=== PATIENT | male | born 1965 | race African-American/Black ===

== ENCOUNTER 2017-07-07 23:18 | Emergency (ER) | payer OTHER ==
[~2017-07-07] VITALS: Ht 160 cm; Wt 122.5 kg
[2017-07-07 23:20] VITALS: BP 189/93
[2017-07-07] MEDS ORDERED: PRED20TA PO (23:48)
--- NOTE | 2017-07-07 23:48 | PHYS DOC ---
Past Medical History Past Medical History: High Cholesterol, Hypertension Past Surgical History: Other Additional Past Surgical Histo: RIGHT HAND TENDON REPAIR Alcohol Use: Occasionally Drug Use: Marijuana Adult General Chief Complaint Chief Complaint: UPPER EXTREMITY PAIN HPI HPI Patient is a 52 year old male with a history of HTN presents to the ED complaining of tingling in right fingers x 3 days. States he noticed the tingling after working out his forearms at the gym. States he was doing quick repetitive motion. Describes its a tingling/numbness in right hand. Rates it as 3/10. 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 Notices the tingling in right hand after playing video games. Denies fever, swelling, recent travel, chest pain, shortness of breath, n/v, dizziness, weakness, or headache. Review of Systems Review of Systems Constitutional: Denies fever or chills [] Eyes: Denies change in visual acuity, redness, or eye pain [] HENT: Denies nasal congestion or sore throat [] Respiratory: Denies cough or shortness of breath [] Cardiovascular: No additional information not addressed in HPI [] GI: Denies abdominal pain, nausea, vomiting, bloody stools or diarrhea [] : Denies dysuria or hematuria [] Musculoskeletal: Denies back pain or joint pain [] Integument: Denies rash or skin lesions [] Neurologic: Denies headache, focal weakness or sensory changes [] Endocrine: Denies polyuria or polydipsia [] Allergies Allergies Allergies Coded Allergies Type Severity Reaction Last Updated Verified No Known Drug Allergies 06/11/14 No Physical Exam Physical Exam Constitutional: Well developed, well nourished, no acute distress, non-toxic appearance. [] HENT: Normocephalic, atraumatic, bilateral external ears normal, oropharynx moist, no oral exudates, nose normal. [] Eyes: PERRLA, EOMI, conjunctiva normal, no discharge. [] Neck: Normal range of motion, no tenderness, supple, no stridor. [] Cardiovascular:Heart rate regular rhythm, no murmur [] Lungs & Thorax: Bilateral breath sounds clear to auscultation [] Abdomen: Bowel sounds normal, soft, no tenderness, no masses, no pulsatile masses. [] Skin: Warm, dry, no erythema, no rash. [] Back: No tenderness, no CVA tenderness. [] Extremities: No tenderness, no cyanosis, no clubbing, ROM intact, no edema. REPRODUCIBLE TINGLING WITH LIGHT TAPPING OVER MEDIAN NERVE. [] Neurologic: Alert and oriented X 3, normal motor function, normal sensory function, no focal deficits noted. [] Psychologic: Affect normal, judgement normal, mood normal. [] Current Patient Data Vital Signs Vital Signs Date Time Temp Pulse Resp B/P (MAP) Pulse Ox O2 Delivery O2 Flow Rate FiO2 07/07/17 23:20 98.6 76 16 98 Room Air 98.6 Lab Values Laboratory Tests Test 07/07/17 23:41 Glucose (Fingerstick) 95 mg/dL (70-99) EKG EKG [] Radiology/Procedures Radiology/Procedures [] Course & Med Decision Making Course & Med Decision Making Pertinent Labs and Imaging studies reviewed. (See chart for details) [] Reproducible paresthesias with tapping over the median nerve. Patient completes many tasks with repetitive motion of the forearm and wrist. No swelling, bony tenderness or overlying skin changes. Will treat with a short course of steroids outpatient. Discussed follow-up with orthopedics early next week. Discussed reasons to return to the ED. Patient understands and agrees with plan. Dragon Disclaimer Dragon Disclaimer This electronic medical record was generated, in whole or in part, using a voice recognition dictation system. Departure Departure Impression: Primary Impression: Tendonitis Additional Impression: Median nerve compression Referrals: Uche ARRIOLA MD (PCP) ANILA CAMARILLO II, MD Patient Instructions: Carpal Tunnel Syndrome Scripts Prednisone (PREDNISONE) 20 Mg Tablet 1 TAB PO BID for 5 Days, #10 TAB Prov: ADALGISA ESTRADA 07/07/17 Problem Qualifiers ADALGISA ESTRADA Jul 07, 2017 23:48
== END 2017-07-07 23:55 | disposition home or self-care (01) ==
LOC: ER 23:18
DX: M77.9 Enthesopathy, unspecified (principal); G56.01 Carpal tunnel syndrome, right upper limb; E78.00 Pure hypercholesterolemia, unspecified; I10 Essential (primary) hypertension
CPT/HCPCS: 29125; 82962; 99283-25

== ENCOUNTER → 2017-09-14 | Day surgery (SDC) | payer OTHER ==
[~2017-09-14] MED LIST: HYDROmorphone 2 MG/ML VIAL IV; LIDOCAINE 1% PF 2 ML VIAL. ID; LIDOCAINE 2% PF Vial for OR 5 ML VIAL.; MORPHINE SULFATE 2 MG/ML DISP.SYRIN. IV; ONDANSETRON PF 4 MG/2 ML VIAL. IV; PROCHLORPERAZINE 10 MG/2 ML VIAL. IV; PROPOFOL 40 ML IV; fentaNYL PF VIAL 100 MCG/2 ML VIAL IV
[2017-09-14] MEDS: IV RINGERS,LACTATED 1000ML 1,000 ML IV (09:53)
== END | disposition home or self-care (01) ==
LOC: ENDOS 09:15
DX: Z12.11 Encounter for screening for malignant neoplasm of colon (principal); D12.0 Benign neoplasm of cecum; K64.0 First degree hemorrhoids; K57.30 Diverticulosis of large intestine without perforation or abscess without bleeding; E78.00 Pure hypercholesterolemia, unspecified; I10 Essential (primary) hypertension; Z72.89 Other problems related to lifestyle; Z88.8 Allergy status to other drugs, medicaments and biological substances
CPT/HCPCS: 45385; 88305; J2704

== ENCOUNTER → 2018-07-02 | Outpatient (CLI) | payer OTHER ==
[2017-09-14 10:56] VITALS: BP 131/88
[~2018-07-02] MED LIST changes: +ASPI81TA50 PO; +HYDR50TA6 PO; -HYDROmorphone 2 MG/ML VIAL IV; -LIDOCAINE 1% PF 2 ML VIAL. ID; -LIDOCAINE 2% PF Vial for OR 5 ML VIAL.; +LOVA40TA2 PO; +METO100T5 PO; -MORPHINE SULFATE 2 MG/ML DISP.SYRIN. IV; -ONDANSETRON PF 4 MG/2 ML VIAL. IV; +PRED20TA PO; -PROCHLORPERAZINE 10 MG/2 ML VIAL. IV; -PROPOFOL 40 ML IV; -fentaNYL PF VIAL 100 MCG/2 ML VIAL IV
--- NOTE | 2018-07-02 10:10 | CARD ---
MR#: [id number] Date of Study: 07/02/2018 Ordering Physician: LUCIE LUTZ, Referring Physician: LUCIE LUTZ, Tech: Yue Cavazos RDCS APPROVED REPORT EXAM: Two-dimensional and M-mode echocardiogram with Doppler and color Doppler. Other Information Quality : Good INDICATION Dyspnea 2D DIMENSIONS RVDd2.9 (2.9-3.5cm)Left Atrium(2D)4.1 (1.6-4.0cm) IVSd1.2 (0.7-1.1cm)Aortic Root(2D)2.9 (2.0-3.7cm) LVDd4.8 (3.9-5.9cm)LVOT Diameter2.1 (1.8-2.4cm) PWd1.2 (0.7-1.1cm)LVDs3.3 (2.5-4.0cm) FS (%) 32.2 %SV65.6 ml LVEF(%)60.3 (>50%) Aortic Valve AoV Peak Sam.121.7cm/sAoV VTI25.6cm AO Peak GR.5.9mmHgLVOT Peak Sam.101.3cm/s AO Mean GR.3mmHgAVA (VMAX)2.93cm2 LYLA (VTI)3.10cm2 Mitral Valve MV E Vmuitaiw836.7cm/sMV DECEL DYMH422ub MV A Yjhuspul44.2cm/sE/A Ratio1.7 Pulmonary Vein S1 Yromlcmn07.4cm/sD2 Gulfspqy46.4cm/s LEFT VENTRICLE The left ventricle is normal size. There is mild concentric left ventricular hypertrophy. The left ve ntricular systolic function is normal. The Ejection Fraction is 55-60%. There is normal LV segmental wall motion. The left ventricular diastolic function and filling is normal for age. RIGHT VENTRICLE The right ventricle is normal size. The right ventricular systolic function is normal. ATRIA The left atrium is mildly dilated. The right atrium size is normal. The interatrial septum is intact with no evidence for an atrial septal defect or patent foramen ovale as noted on 2-D or Doppler imagi ng. AORTIC VALVE The aortic valve is calcified but opens well. Doppler and Color Flow revealed no significant aortic r egurgitation. There is no significant aortic valvular stenosis. MITRAL VALVE The mitral valve is thickened but opens well. There is no evidence of mitral valve prolapse. There is no mitral valve stenosis. Doppler and Color-flow revealed trace to mild mitral regurgitation. TRICUSPID VALVE The tricuspid valve is normal in structure and function. Doppler and Color Flow revealed no tricuspid valve regurgitation noted. There is no tricuspid valve stenosis. PULMONIC VALVE The pulmonary valve is normal in structure and function. Doppler and Color Flow revealed trace pulmon ic valvular regurgitation. There is no pulmonic valvular stenosis. GREAT VESSELS The aortic root is normal in size. The ascending aorta is normal in size. The IVC is normal in size a nd collapses >50% with inspiration. PERICARDIAL EFFUSION There is no evidence of significant pericardial effusion. Critical Notification Critical Value: No <Conclusion> The left ventricular systolic function is normal. The Ejection Fraction is 55-60%. There is normal LV segmental wall motion. The left atrium is mildly dilated. Trace to mild mitral regurgitation. There is no evidence of significant pericardial effusion. Signed by : Padilla Garland, Electronically Approved : 07/02/2018 10:09:22
== END | disposition home or self-care (01) ==
LOC: ECHO 09:23
PROVIDERS: ATTEND Internal Medicine Cardiovascular Disease
DX: I34.0 Nonrheumatic mitral (valve) insufficiency (principal)
CPT/HCPCS: 93306

== ENCOUNTER 2018-10-05 01:53 | Emergency (ER) | payer OTHER ==
[~2018-10-05] VITALS: Ht 190.5 cm; Wt 122.0 kg
[2018-10-05 02:16] LABS: BASO # 0.1 x10^3/uL (0.0-0.2); BASO % 1 % (0-3); EOS # 0.1 x10^3/uL (0.0-0.7); EOS % 2 % (0-3); HEMATOCRIT 38.3 % (39.0-53.0); HEMOGLOBIN 13.8 g/dL (13.0-17.5); LYMPH # 3.1 x10^3/uL (1.0-4.8); LYMPH % 41 % (24-48); MEAN CORPUSCULAR HEMOGLOBIN 33 pg (25-35); MEAN CORPUSCULAR HGB CONC 36 g/dL (31-37); MEAN CORPUSCULAR VOLUME 92 fL (79-100); MONO # 0.4 x10^3/uL (0.0-1.1); MONO % 5 % (0-9); NEUT # 3.9 x10^3uL (1.8-7.7); NEUT % 51 % (31-73); PLATELET COUNT 136 x10^3/uL (140-400); RED BLOOD COUNT 4.19 x10^6/uL (4.30-5.70); RED CELL DISTRIBUTION WIDTH 12.9 % (11.5-14.5); WHITE BLOOD COUNT 7.6 x10^3/uL (4.0-11.0)
[2018-10-05 02:26] LABS: PROTHROMBIN TIME PATIENT 14.1 SEC (11.7-14.0)
[2018-10-05] MEDS ORDERED: FAMOTIDINE 20 MG/2 ML VIAL IVP ONE (02:30)
[2018-10-05] MEDS ORDERED: IV NORMAL SALINE 1000ML BAG 1,000 ML IV ONE (02:30)
[2018-10-05 02:31] LABS: CREATININE 1.1 mg/dL (0.7-1.3); GFR 84.7; POTASSIUM 3.5 mmol/L (3.5-5.1)
--- NOTE | 2018-10-05 02:34 | PHYS DOC ---
Past Medical History Past Medical History: High Cholesterol, Hypertension Past Surgical History: Other Additional Past Surgical Histo: RIGHT HAND TENDON REPAIR Additional Information: nonsmoker Alcohol Use: Heavy Drug Use: Marijuana Adult General Chief Complaint Chief Complaint: ABDOMINAL PAIN HPI HPI Patient is a 53 year old male who presents with a three week history of LUQ abdominal pain that has progressively gotten worse. He describes it as dull and localized to the right and left upper quadrant. He took medina-seltzer tonight because the pain started after he ate and he thought it may be related to his stomach. He denies the pain being worsened by meals or by movement. He denies nausea, vomiting, chest pain, SOB, diarrhea, constipation, fever, chills, pain on urination, and blood in the urine. Patient denies trauma. Patient with history of chronic ETOH use. Reports he drinks 1-2 beers and a few shots daily. Reports stopped 1 week ago. Denies trauma. Denies rash. Review of Systems Review of Systems Constitutional: Denies fever or chills [] Eyes: Denies change in visual acuity, redness, or eye pain [] HENT: Denies nasal congestion or sore throat [] Respiratory: Denies cough or shortness of breath [] Cardiovascular: Denies chest pain or palpitations [] GI: Reports LUQ abdominal pain, denies nausea, vomiting, or diarrhea [] : Denies dysuria or hematuria [] Musculoskeletal: Denies back pain or joint pain [] Integument: Denies rash or skin lesions [] Neurologic: Denies headache, focal weakness or sensory changes [] Complete systems were reviewed and found to be within normal limits, except as documented in this note. Current Medications Current Medications Current Medications Medications (Trade) Dose Ordered Sig/Pamela Start Time Stop Time Status Last Admin Dose Admin Famotidine (Pepcid Vial) 20 mg 1X ONCE 10/05/18 02:30 10/05/18 02:31 DC 10/05/18 02:37 20 MG Fentanyl Citrate (Fentanyl 2ml Vial) 50 mcg 1X ONCE 10/05/18 04:00 10/05/18 04:01 DC 10/05/18 03:42 50 MCG Info (CONTRAST GIVEN -- Rx MONITORING) 1 each PRN DAILY PRN 10/05/18 03:00 10/05/18 04:15 DC Iohexol (Omnipaque 300 Mg/ml) 75 ml 1X ONCE 10/05/18 03:15 10/05/18 03:16 DC 10/05/18 03:10 75 ML Sodium Chloride 1,000 ml @ 1,000 mls/hr 1X ONCE 10/05/18 02:30 10/05/18 03:29 DC 10/05/18 02:37 1,000 MLS/HR Allergies Allergies Allergies Coded Allergies Type Severity Reaction Last Updated Verified lisinopril Allergy Intermediate Swelling 09/14/17 Yes Physical Exam Physical Exam Constitutional: Well developed, well nourished, no acute distress, non-toxic appearance. [] HENT: Normocephalic, atraumatic, nose normal. [] Eyes: Conjunctiva normal, no discharge. [] Neck: Normal range of motion, no tenderness, supple. [] Cardiovascular: Heart rate regular rhythm, no murmur [] Lungs & Thorax: Bilateral breath sounds clear to auscultation [] Abdomen: Mildly distended, tender to palpation in the right and left upper quadrant, non-peritoneal Skin: Warm, dry, no erythema, no rash. [] Back: No tenderness, no CVA tenderness. [] Extremities: No tenderness, no edema. [] Neurologic: Alert and oriented X 3, no focal deficits noted. [] Psychologic: Affect normal, judgement normal, mood normal. [] Current Patient Data Vital Signs Vital Signs Date Time Temp Pulse Resp B/P (MAP) Pulse Ox O2 Delivery O2 Flow Rate FiO2 10/05/18 03:56 64 18 138/85 (102) 99 10/05/18 02:11 97.8 Room Air 97.8 Lab Values Laboratory Tests Test 10/05/18 02:06 10/05/18 03:23 White Blood Count 7.6 x10^3/uL (4.0-11.0) Red Blood Count 4.19 x10^6/uL (4.30-5.70) L Hemoglobin 13.8 g/dL (13.0-17.5) Hematocrit 38.3 % (39.0-53.0) L Mean Corpuscular Volume 92 fL (79-100) Mean Corpuscular Hemoglobin 33 pg (25-35) Mean Corpuscular Hemoglobin Concent 36 g/dL (31-37) Red Cell Distribution Width 12.9 % (11.5-14.5) Platelet Count 136 x10^3/uL (140-400) L Neutrophils (%) (Auto) 51 % (31-73) Lymphocytes (%) (Auto) 41 % (24-48) Monocytes (%) (Auto) 5 % (0-9) Eosinophils (%) (Auto) 2 % (0-3) Basophils (%) (Auto) 1 % (0-3) Neutrophils # (Auto) 3.9 x10^3uL (1.8-7.7) Lymphocytes # (Auto) 3.1 x10^3/uL (1.0-4.8) Monocytes # (Auto) 0.4 x10^3/uL (0.0-1.1) Eosinophils # (Auto) 0.1 x10^3/uL (0.0-0.7) Basophils # (Auto) 0.1 x10^3/uL (0.0-0.2) Prothrombin Time 14.1 SEC (11.7-14.0) H Prothrombin Time INR 1.1 (0.8-1.1) PTT 29 SEC (24-38) Sodium Level 141 mmol/L (136-145) Potassium Level 3.5 mmol/L (3.5-5.1) Chloride Level 104 mmol/L (98-107) Carbon Dioxide Level 27 mmol/L (21-32) Anion Gap 10 (6-14) Blood Urea Nitrogen 20 mg/dL (8-26) Creatinine 1.1 mg/dL (0.7-1.3) Estimated GFR (Cockcroft-Gault) 84.7 BUN/Creatinine Ratio 18 (6-20) Glucose Level 112 mg/dL (70-99) H Calcium Level 9.0 mg/dL (8.5-10.1) Total Bilirubin 0.6 mg/dL (0.2-1.0) Aspartate Amino Transferase (AST) 34 U/L (15-37) Alanine Aminotransferase (ALT) 35 U/L (16-63) Alkaline Phosphatase 77 U/L (46-116) Creatine Kinase 801 U/L (39-308) H Creatine Kinase MB (Mass) 6.8 ng/mL (0.0-3.6) H Creatine Kinase MB Relative Index 0.8 % (0-4) Troponin I Quantitative < 0.017 ng/mL (0.000-0.055) Total Protein 7.9 g/dL (6.4-8.2) Albumin 4.0 g/dL (3.4-5.0) Albumin/Globulin Ratio 1.0 (1.0-1.7) Lipase 158 U/L (73-393) Ethyl Alcohol Level < 10 mg/dL (0-10) Urine Collection Type Unknown Urine Color Yellow Urine Clarity Clear Urine pH 6.0 Urine Specific [place] >=1.030 Urine Protein Negative mg/dL (NEG-TRACE) Urine Glucose (UA) Negative mg/dL (NEG) Urine Ketones (Stick) Negative mg/dL (NEG) Urine Blood Negative (NEG) Urine Nitrite Negative (NEG) Urine Bilirubin Negative (NEG) Urine Urobilinogen Dipstick 1.0 mg/dL (0.2 mg/dL) Urine Leukocyte Esterase Negative (NEG) Urine RBC Occ /HPF (0-2) Urine WBC Occ /HPF (0-4) Urine Squamous Epithelial Cells Occ /LPF Urine Bacteria 0 /HPF (0-FEW) Urine Mucus Mod /LPF Laboratory Tests 10/05/18 02:06 Laboratory Tests 10/05/18 02:06 EKG EKG @0232 sinus rhythm at 73 BPM, incomplete right bundle-branch block, no ST elevation Radiology/Procedures Radiology/Procedures PROCEDURE: CT ABD PELV W/ IV CONTRST ONLY INDICATION: LUQ pain, OMNI 300, 75ml COMPARISON: None. TECHNIQUE: Axial CT images obtained through the abdomen and pelvis with contrast. One or more of the following individualized dose reduction techniques were utilized for this examination: 1. Automated exposure control; 2. Adjustment of the mA and/or kV according to patient size; 3. Use of iterative reconstruction technique. FINDINGS: Moderate calcific atherosclerosis. Small fat-containing inguinal hernias. No intrahepatic bile duct dilation. The gallbladder is contracted. No peripancreatic fluid collection. Spleen unremarkable. No left-sided hydronephrosis. Urinary bladder is partially distended. No right-sided hydronephrosis. The appendix measures approximately 6 mm with no adjacent inflammatory changes at this time. Degenerative changes of the spine. Degenerative changes of the hips. IMPRESSION: 1. No evidence of bowel obstruction. 2. The appendix is near the upper limits of normal in size without adjacent inflammatory changes. 3. Urinary bladder wall is mildly prominent. Electronically signed by: Jimi Núñez MD (10/05/2018 3:37 AM) [facility] Course & Med Decision Making Course & Med Decision Making Pertinent Labs and Imaging studies reviewed. (See chart for details) Patient is a 53 YO M that presented with a three week history of LUQ abdominal pain. History and physical exam were concerning for possible pancreatitis. Labs obtained and posted to chart. EKG stable. Troponin WNL. LFTs and lipase WNL. UA without signs of infection. CT abd/pelvis negative for acute pathology. Pain management addressed. Discussed follow-up with GI doctor for in depth abdominal work-up. 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 Discussed findings and plan with patient and family, who acknowledge understanding and agreement. Dragon Disclaimer Dragon Disclaimer This electronic medical record was generated, in whole or in part, using a voice recognition dictation system. Departure Departure Impression: Primary Impression: Abdominal pain Disposition: HOME, SELF-CARE Condition: STABLE Referrals: Uche ARRIOLA MD (PCP) MAXINE CALDERON MD Patient Instructions: Abdominal Pain (Nonspecific) Scripts Tramadol Hcl (TRAMADOL HCL) 50 Mg Tablet 50 MG PO Q6HRS PRN for PAIN, #14 TAB Please take each tablet with one regular strength Tylenol (325mg) Prov: FITZ NEFF DO 10/05/18 Hyoscyamine Sulfate (LEVSIN-SL) 0.125 Mg Tab.subl 1-2 TAB SL PRN Q4HRS PRN for PAIN, #20 TAB 0 Refills Prov: FITZ NEFF DO 10/05/18 Famotidine (PEPCID) 20 Mg Tablet 20 MG PO BID, #20 TAB Prov: FITZ NEFF DO 10/05/18 Problem Qualifiers Primary Impression: Abdominal pain Abdominal location: upper abdomen, unspecified Qualified Codes: R10.10 - Upper abdominal pain, unspecified FITZ NEFF DO Oct 05, 2018 02:34
[2018-10-05 02:37] LABS: TOTAL BILIRUBIN 0.6 mg/dL (0.2-1.0); TOTAL PROTEIN 7.9 g/dL (6.4-8.2)
[2018-10-05] MEDS ORDERED: CONTRAST GIVEN. MC PRN (03:00)
[2018-10-05] MEDS ORDERED: IOHEXOL 300 MG/ML 100ML VIAL. IV ONE (03:15)
[2018-10-05 03:39] LABS: BILIRUBIN,URINE NEGATIVE (NEG); CLARITY,URINE CLEAR; COLOR,URINE YELLOW; NITRITE,URINE NEGATIVE (NEG); PROTEIN,URINE NEGATIVE (NEG-TRACE)
--- NOTE | 2018-10-05 03:42 | RAD ---
INDICATION: LUQ pain, OMNI 300, 75ml COMPARISON: None. TECHNIQUE: Axial CT images obtained through the abdomen and pelvis with contrast. One or more of the following individualized dose reduction techniques were utilized for this examination: 1. Automated exposure control; 2. Adjustment of the mA and/or kV according to patient size; 3. Use of iterative reconstruction technique. FINDINGS: Moderate calcific atherosclerosis. Small fat-containing inguinal hernias. No intrahepatic bile duct dilation. The gallbladder is contracted. No peripancreatic fluid collection. Spleen unremarkable. No left-sided hydronephrosis. Urinary bladder is partially distended. No right-sided hydronephrosis. The appendix measures approximately 6 mm with no adjacent inflammatory changes at this time. Degenerative changes of the spine. Degenerative changes of the hips. IMPRESSION: 1. No evidence of bowel obstruction. 2. The appendix is near the upper limits of normal in size without adjacent inflammatory changes. 3. Urinary bladder wall is mildly prominent. Electronically signed by: Jimi Núñez MD (10/05/2018 3:37 AM) [facility]
[2018-10-05] MEDS ORDERED: HYOS0.1265 SL (03:53)
[2018-10-05] MEDS ORDERED: FAMO-63 PO (03:53)
[2018-10-05 03:56] VITALS: BP 138/85
[2018-10-05] MEDS ORDERED: fentaNYL PF VIAL 100 MCG/2 ML VIAL IV ONE (04:00)
[2018-10-05] MEDS ORDERED: TRAM50TA PO (04:04)
[2018-10-05 04:15] LABS: BACTERIA,URINE 0 /HPF (0-FEW); RBC,URINE OCC /HPF (0-2); SQUAMOUS EPITHELIAL CELL,UR OCC /LPF; WBC,URINE OCC /HPF (0-4)
--- NOTE | 2018-10-05 12:01 | EKG ---
[facility] [address] [place] [address] Test Date: 2018-10-05 Test Time: 02:29:17 Pat Name: KENNEDI ROMEO Department: Room: Gender: Male [employer] Supervisor: : 1965 Requested By: FITZ NEFF Order Number: [id number] Reading MD: Padilla Garland Measurements Intervals [place] Rate: 73 P: 62 MD: 194 QRS: -14 QRSD: 100 T: 6 QT: 406 QTc: 451 Interpretive Statements SINUS RHYTHM LEFTWARD AXIS INCOMPLETE RIGHT BUNDLE BRANCH BLOCK Electronically Signed On 10-16-2018 14:50:16 [employer] by Padilla Garland
== END 2018-10-05 04:15 | disposition home or self-care (01) ==
LOC: ER 01:53
DX: R14.0 Abdominal distension (gaseous) (principal); R10.12 Left upper quadrant pain; E78.00 Pure hypercholesterolemia, unspecified; I10 Essential (primary) hypertension; F10.20 Alcohol dependence, uncomplicated; Y90.9 Presence of alcohol in blood, level not specified; Z88.8 Allergy status to other drugs, medicaments and biological substances
CPT/HCPCS: 36415; 74177; 80053; 81001; 82553; 83690; 84484; 85025; 85610; 85730; 93005; 96374; 96375; 99284; G0480; J3010; J3490; J7030; Q9967